=== PATIENT | female | born 1990 ===

== ENCOUNTER 2024-10-09 09:15 | Inpatient (IN) | payer OTHER ==
[~2024-10-09] VITALS: Ht 91.4 cm; Wt 73.0 kg
[2024-10-09] MEDS ORDERED: TOPROL XL25 M1 PO (10:44)
[2024-10-09] MEDS ORDERED: ADULT LOW DOSE81 M1 PO (10:45)
[2024-10-09 10:53] VITALS: BP 91/50
[2024-10-09 10:56] VITALS: BP 113/73
[2024-10-14] MEDS ORDERED: POVIDONE-IODINE 118 ML BOTT TOP ONE (11:00)
[2024-10-14] MEDS ORDERED: CEFAZOLIN SODIUM 1,000 MG VIAL IV ONE (11:00)
[2024-10-14] MEDS ORDERED: MEPERIDINE HCL 25 MG/ML AMPUL IV ONE (12:00)
[2024-10-14] MEDS ORDERED: MEPERIDINE HCL/PF 50 MG/ML VIAL IV SCH (12:07)
[2024-10-14] MEDS ORDERED: PROMETHAZINE HCL 25 MG/ML AMPUL IV SCH (12:07)
[2024-10-14] MEDS ORDERED: ONDANSETRON HCL 2 MG/ML VIAL IV ONE (13:00)
[2024-10-14 14:08] VITALS: BP 113/73
[2024-10-14 16:32] VITALS: BP 118/78
[2024-10-14 17:55] LABS: HEMATOCRIT 36.4 % (36.0-45.00); HEMOGLOBIN 12.2 g/dL (12.0-15.00); MEAN CELL VOLUME 84.3 fL (80.00-100.00); MEAN CORPUSCULAR HEMOGLOBIN 28.2 pg (27.00-32.0); MEAN CORPUSCULAR HGB CONC 33.5 g/dl (32.0-36.0); PLATELET COUNT 276 K/uL (150-450); RED BLOOD COUNT 4.32 M/uL (4.00-6.00); RED CELL DISTRIBUTION WIDTH 13.3 % (11.5-14.5)
[2024-10-14 20:25] VITALS: BP 115/74
[2024-10-15 00:59] VITALS: BP 107/70
[2024-10-15] MEDS ORDERED: GABAPENTIN 300 MG CAPSULE PO SCH (05:00)
[2024-10-15] MEDS ORDERED: SIMETHICONE 125 MG CAPSULE PO SCH (05:00)
[2024-10-15] MEDS ORDERED: IBUprofen 800 MG TABLET PO SCH (06:00)
[2024-10-15 08:00] VITALS: BP 118/74
[2024-10-15] MEDS ORDERED: POLYETHYLENE GLYCOL 3350 17 GM BLIST.PACK PO SCH (09:00)
[2024-10-15] MEDS ORDERED: METOPROLOL SUCCINATE 25 MG TAB.SR.24H PO SCH (09:00)
[2024-10-15 17:31] VITALS: BP 100/62
[2024-10-15 20:55] VITALS: BP 100/65
[2024-10-16 00:47] VITALS: BP 100/57
[2024-10-16] MEDS ORDERED: GABAPENTIN300 MG PO (07:10)
[2024-10-16] MEDS ORDERED: IBUPROFEN800 MG PO (07:10)
[2024-10-16] MEDS ORDERED: SIMETHICONE125 M1 PO (07:11)
[2024-10-16] MEDS ORDERED: POLY119PG PO (07:11)
[2024-10-16 08:39] VITALS: BP 104/61
== END 2024-10-16 11:15 | disposition home or self-care (01) | DRG 743 ==
LOC: OB/GYN 10-14 05:20 → O/R 10-14 05:20 → OB/GYN 10-14 09:15
PROVIDERS: ADMIT Obstetrics & Gynecology; ATTEND Obstetrics & Gynecology
PROC: 0UT90ZZ Resection of Uterus, Open Approach (ICD-10-PCS; principal; 2024-10-14 10:45)
DX: D25.9 Leiomyoma of uterus, unspecified (principal); N93.9 Abnormal uterine and vaginal bleeding, unspecified; R10.2 Pelvic and perineal pain; Z20.822 Contact with and (suspected) exposure to COVID-19